=== PATIENT | female | born 1975 | race Caucasian/White ===

== ENCOUNTER 2017-01-20 07:22 | Emergency (ER) | payer MEDICAID ==
[2017-01-20] MEDS ORDERED: BUPIVACAINE HCL/PF 0.5% 30 ML VIAL ONE (07:57)
--- NOTE | 2017-01-20 09:32 | ER NURSING DOCUMENTATION ---
Nurse's Notes [facility] Name:Steffi Maria Age:41 yrs Sex:Female :1975 Arrival Date:01/20/2017 Time:07:22 Bed1 Private MD:No PCP, Identified Diagnosis:Abscess;Cellulitis of Buttock Presentation: 01/20 07:27 Presenting complaint: Patient states: I have a cyst on my buttock and it is draining. cb Transition of care: Home. Notified ED Physician of patient's arrival and CC Dr. Caraballo notified. 07:27 Method Of Arrival: Private Vehicle cb 07:27 Acuity: BREANNE 3 cb Triage Assessment: 07:30 General: Appears in no apparent distress, well groomed, Behavior is cooperative. Pain: cb Complains of pain in left gluteus flaquito Pain currently is 4 out of 10 on a pain scale. EENT: No deficits noted. Neuro: Level of Consciousness is awake, alert, Oriented to person, place, time, event. Cardiovascular: Pulses are 2+ in left radial artery. Respiratory: Airway is patent Trachea midline Respiratory effort is even, unlabored, Respiratory pattern is regular, symmetrical. GI: Reports tolerance of fluids, tolerance of food. : Denies burning with urination. Derm: Abscess located on left gluteus flaquito Reports drainage on Thursday and ongoing with odor. Historical: - Allergies: No known drug Allergies; - Home Meds: 1. tramadol 50 mg oral tab 2 tabs every 8 hrs 2. Mobic 7.5 mg oral tab 1 tab once daily 3. gabapentin 400 mg oral tab 1 tab 3 times per day - Tetanus: < 10 years. - Ebola Screening: : Patient negative for fever greater than or equal to 101.5 degrees Fahrenheit, and additional compatible Ebola Virus Disease symptoms. Patient denies exposure to infectious person. Patient denies travel to an Ebola-affected area in the 21 days before illness onset. No symptoms or risks identified at this time. . - Immunization history: Flu Vaccine None. - Social history: Smoking status: Patient uses tobacco products, current every day smoker. Patient uses marijuana. Screenin:36 Infectious Disease Risk None. Abuse screen: Denies threats or abuse. Denies injuries cb from another. Nutritional screening: No deficits noted. Vital Signs: 07:33 BP 105 / 85; Pulse 70; Resp 16; Temp 98.8(TE); Pulse Ox 92% on R/A; Weight 63.5 kg; cb Height 5 ft. 7 in. (170.18 cm); Pain 4/10; 07:33 Body Mass Index 21.93 (63.50 kg, 170.18 cm) cb ED Course: 07:23 Patient arrived in ED. ds 07:23 No PCP, Identified is Private Physician. ds 07:27 Carolina Culp, RN is Primary Nurse. cb 07:28 Triage completed. cb 07:33 Filipe Caraballo MD is Attending Physician. tl1 07:36 Valuables Remains with patient Patient has correct armband on for positive cb identification. Placed in gown. Bed in low position. Call light in reach. Pulse Ox - RN Monitoring Only NIBP On - RN Monitoring Only. 09:00 Loco Ordaz MD is Referral Physician. tl1 09:00 Assist Provider Assist provider with I & D: of an abscess on left buttock Set up I&D cb tray. Performed by Filipe Caraballo MD Wound packed. 18 inches of 1/4 Iodoform gauze Dressing with 4X4s, patient given depends X 2 also Patient tolerated well. Administered Medications: No medications were administered Outcome: 09:01 Discharge ordered by . tl1 09:31 Patient left the ED. cb 09:31 Discharged to home ambulatory. cb 09:31 Condition: stable 09:31 Discharge instructions given to patient, Instructed on discharge instructions, follow up and referral plans. Instructed patient to pulled out 1" every 2-[address] Caraballo Demonstrated understanding of Prescriptions given X 2. 01/21 09:26 Discharge F/U Call: Spoke with: patient. Have you made a f/u appointment? yes lp Signatures: Carolina Culp, Macy Patricia RN, cb, RN RN lp Srot, Mikaela, Reg Reg Filipe Guzman MD MD tl1
--- NOTE | 2017-01-20 09:32 | ER PHYSICIAN DOCUMENTATION ---
Physician Documentation [facility] Name:Steffi Maria Age:41 yrs Sex:Female :1975 Arrival Date:01/20/2017 Time:07:22 Bed1 Private MD:No PCP, Identified ED [email or web address] Disposition: 01/20 09:23 Chart complete. tl1 Disposition: 01/20/17 09:01 Discharged to Home/Self Care. Impression: Abscess, Cellulitis of Buttock. - Condition is Good. - Discharge Instructions: CELLULITIS, BOIL Incision and Drainage - ABSCESS, I and D. - Prescriptions for Clindamycin HCl 300 mg Oral Capsule - take 1 capsule by ORAL route every 6 hours for 10 days; 40 capsule. [place] 5- 325 mg Oral - take 1 tablet by ORAL route every 6 hours As needed; 12 tablet. - Medical Reconciliation form form. - Follow up: Loco Ordaz MD; When: Tomorrow; Reason: Recheck today's complaints. - Problem is new. - Symptoms have improved. HPI: 07:34 This 41 yrs old Female presents to ER via Private Vehicle with complaints of tl1 left buttock abscess. 07:34 4 days ago she noted a red tender nodule on her left lower / medial buttock that tl1 increased rapidly in size and which started draining pus last night. She denies f/c/s/n/v/d. She has not had anything like this before. no other complaint.. Historical: - Allergies: No known drug Allergies; - Home Meds: 1. tramadol 50 mg oral tab 2 tabs every 8 hrs 2. Mobic 7.5 mg oral tab 1 tab once daily 3. gabapentin 400 mg oral tab 1 tab 3 times per day - Tetanus: < 10 years. - Ebola Screening: : Patient negative for fever greater than or equal to 101.5 degrees Fahrenheit, and additional compatible Ebola Virus Disease symptoms. Patient denies exposure to infectious person. Patient denies travel to an Ebola-affected area in the 21 days before illness onset. No symptoms or risks identified at this time. . - Immunization history: Flu Vaccine None. - Social history: Smoking status: Patient uses tobacco products, current every day smoker. Patient uses marijuana. ROS: 09:18 Constitutional: Negative for body aches, chills, fatigue, fever, malaise, poor PO tl1 intake. 09:18 Cardiovascular: Negative for chest pain. 09:18 Respiratory: Negative for shortness of breath. 09:18 Abdomen/GI: Negative for abdominal pain, nausea, vomiting, diarrhea, constipation. 09:18 All other systems are negative. Exam: 09:18 Constitutional: This is a well developed, well nourished patient who is awake, alert, tl1 and in no acute distress. 09:18 Head/face: Exam is negative for acute changes. 09:18 Cardiovascular: Rate: normal, Rhythm: regular, Edema: is not appreciated. 09:18 Respiratory: Respirations: normal. 09:18 Skin: abscess, that is large, approximately 6 cm(s), of the left lower medial buttock, cellulitis, that is mild, induration, that is moderate is noted, there is a 3 mm hole in the center draining small amounts of pus.. Vital Signs: 07:33 BP 105 / 85; Pulse 70; Resp 16; Temp 98.8(TE); Pulse Ox 92% on R/A; Weight 63.5 kg; cb Height 5 ft. 7 in. (170.18 cm); Pain 4/10; 07:33 Body Mass Index 21.93 (63.50 kg, 170.18 cm) cb Procedures: 09:22 I & D: Incision and drainage was performed for an abscess of the left left gluteus tl1 flaquito Prepped with chlorhexidine. Anesthetized with 0.5% marcaine. Incised with #11 blade. Drained small amount purulent fluid. Packed with iodoform gauze, the patient tolerated the procedure well. MDM: 07:33 Patient medically screened. tl1 09:23 Differential Diagnosis abscess with cellulitis. Data reviewed: vital signs, nurses tl1 notes, and as a result, I will discharge patient. Counseling: I had a detailed discussion with the patient and/or guardian regarding: the historical points, exam findings, and any diagnostic results supporting the discharge/admit diagnosis, the need for outpatient follow up, to return to the emergency department if symptoms worsen or persist or if there are any questions or concerns that arise at home. Response to treatment: the patient's symptoms have mildly improved after treatment. Dispensed Medications: No medications were administered Signatures: Ballinghoff, Carolina, RN RN cb Rashmi, Filipe, MD MD tl1
== END 2017-01-20 09:32 | disposition home or self-care (01) ==
LOC: ER 07:22
DX: L02.31 Cutaneous abscess of buttock (principal); L03.317 Cellulitis of buttock; F17.210 Nicotine dependence, cigarettes, uncomplicated; Z79.899 Other long term (current) drug therapy
CPT/HCPCS: 10060; 99283